=== PATIENT | female | born 1955 | race Asian ===

== ENCOUNTER 2016-12-12 12:54 | Observation (INO) | payer SELFPAY ==
[~2016-12-12] VITALS: Ht 157.5 cm; Wt 82.0 kg
[~2016-12-12 12:54] MED LIST: ALEV220C; IBUP800 PO
[2016-12-12 13:02] VITALS: BP 151/80; PULSE 91; RESP 16; TEMP 98.2; O2SAT 98
[2016-12-12] MEDS ORDERED: SODIUM CHLOR 0.9% 1000 ML INJ 1,000 ML IV ONE (15:28)
[2016-12-12] MEDS ORDERED: KETOROLAC TROMETHAMINE 30 MG/ML (IVP) VIAL IVP ONE (15:30)
[2016-12-12] MEDS ORDERED: ONDANSETRON HCL 4 MG/2 ML VIAL IVP ONE (15:30)
--- NOTE | 2016-12-12 15:35 | PD ---
HPI Chief Complaint: Flank/Kidney Pain Time Seen by Provider: 15:32 Travel History International Travel<30 days: No Contact w/Intl Traveler<30days: No Traveled to known affect area: No History of Present Illness HPI 61-year-old female that presents to the ED for evaluation of left abdominal and flank pain. Per patient she's had this since yesterday. Per patient the pain is severe. Per patient comes and goes. Per patient she also has sensation that she has to urinate but she has not been able to urinate much. She does have a history of kidney stones in the past. She denies any trauma. Per patient she gets nauseous and vomits when she gets the severe pain. Per patient the pain is sharp and debilitating. Per patient the pain when he comes is 10 out of 10. Per patient she's been taking OTC meds with some relief but he continues to come back. She states that she is not eating much today because of the nausea and vomited. She is afraid of eating anything. She has no allergies to medication. She has not seen anybody for this. Pain does not radiate and stays mainly on the left flank and left abdomen. Does not improve with touch or with movement. Comes on and off with no obvious trigger. No bowel movement issues. Patient states that she has had her appendix and gallbladder removed. 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) Social History Alcohol Use: No Tobacco Use: No Substance Use: No Allergies-Medications (Allergen,Severity, Reaction): Coded Allergies: No Known Allergies (Verified , 12/12/16) Reported Meds & Prescriptions Reported Meds & Active Scripts Active Reported Tylenol (Acetaminophen) 325 Mg Tab 650 Mg PO Q4H PRN Review of Systems General / Constitutional: No: Fever, Chills, Weight Gain, Weight Loss, Other Eyes: No: Diploplia, Blurred Vision, Photophobia, Drainage, Redness, Foreign Body Sensation, Pain, Tearing, Blind Spots, Visual changes, Blindness, Other HENT: No: Headaches, Vertigo, Lightheadedness, Sore Throat, Rhinitis, Rhinorrhea, Congestion, Nosebleed, Neck Stiffness, Neck Pain, Masses, Gingival Bleeding, Dental Difficulties, Ear Discharge, Earache, Other Cardiovascular: No: Chest Pain or Discomfort, Palpitations, Irregular Rhythm, Tachycardia, Diaphoresis, Syncope, Dyspnea on exertion, Varicosities, Edema, Cyanosis, Varicosities, Phlebitis, Claudication, Other Respiratory: No: Cough, Shortness of Breath, Wheezing, Sneezing, Orthopnea, Hemoptysis, Stridor, Night Sweats, Pleuritic Pain, Other Gastrointestinal: Positive: Nausea, Vomiting, Abdominal Pain, No: Diarrhea, Hematemesis, Hematochezia, Constipation, Changes in Bowel Habits, Indigestion, Dysphagia, Loss of Appetite, Other Genitourinary: Positive: Flank Pain, No: Urgency, Frequency, Dysuria, Nocturia , Hematuria, Decreased Urinary Output, Oliguria, Hesitancy, Dribbling, Incontinence, Pelvic Pain, Dyspareunia, Discharge, Dysmenorrhea, Menorrhagia, Metorrhagia, Vaginal Bleeding, Other Musculoskeletal: No: Myalgias, Arthralgias, Limited ROM, Weakness, Cramping, Edema, Pain, Atrophy, Other Skin: No Rash, No Itching, No Dryness, No Lumps, No Hives, No Change in Pigmentation, No Change in nails, No Alopecia, No Lesions, No Breast Lumps, No Breast Tenderness, No Breast Swelling, No Other Neurologic: No: Weakness, Dizziness, Syncope, Focal Abnormalities, Coordination Problem, Tremor, Ataxia, Headache, Change in Mentation, Slurred Speech, Paresthesia, Incontinence, Seizures, Sensory Disturbance, Other Psychiatric: No: Anxiety, Depression, Suicidal Ideations, Disorder of Thought, Mood Disorder, Substance Abuse, Homicidal Ideation, Other Endocrine: No: Heat Intolerance, Cold Intolerance, Polyuria, Polydipsia, Other Hematologic/Lymphatic: No: Easy Bruising, Lymph Node Enlargement, Other Physical Exam Narrative GENERAL: SKIN: Warm and dry. HEAD: Atraumatic. Normocephalic. EYES: Pupils equal and round. No scleral icterus. No injection or drainage. ENT: No nasal bleeding or discharge. Mucous membranes pink and moist. Tongue is midline. No uvula deviation. NECK: Trachea midline. No JVD. CARDIOVASCULAR: Regular rate and rhythm. No murmurs, S3, S4. RESPIRATORY: No accessory muscle use. Clear to auscultation. Breath sounds equal bilaterally. GASTROINTESTINAL: Abdomen soft, non-tender, nondistended. Hepatic and splenic margins not palpable. No CVA tenderness. No obvious tenderness to palpation with touch. MUSCULOSKELETAL: Extremities without clubbing, cyanosis, or edema. No obvious deformities. Full range of motion of the upper and lower extremities bilaterally. NEUROLOGICAL: Awake and alert. No obvious cranial nerve deficits. Motor grossly within normal limits. Five out of 5 muscle strength in the arms and legs. Normal speech. PSYCHIATRIC: Appropriate mood and affect; insight and judgment normal. Data Data Last Documented VS Vital Signs Date Time Temp Pulse Resp B/P Pulse Ox O2 Delivery O2 Flow Rate FiO2 12/12/16 13:02 98.2 91 16 151/80 98 Orders Urinalysis - C+S If Indicated (12/12/16 13:06) Complete Blood Count With Diff (12/12/16 15:28) Comprehensive Metabolic Panel (12/12/16 15:28) Ct Abd/Pel W/O Iv Contrast (12/12/16 15:28) Iv Access Insert/Monitor (12/12/16 15:28) Ketorolac Inj (Toradol Inj) (12/12/16 15:30) Ondansetron Inj (Zofran Inj) (12/12/16 15:30) Sodium Chlor 0.9% 1000 Ml Inj (Ns 1000 M (12/12/16 15:28) Lipase (12/12/16 15:28) Npo After Midnight W/ Po Meds (12/12/16 Dinner) ^ Consent (12/12/16 16:40) Morphine Inj (Morphine Inj) (12/12/16 17:00) Ondansetron Inj (Zofran Inj) (12/12/16 17:00) Admit Order (Ed Use Only) (12/12/16 17:19) Labs Laboratory Tests Test 12/12/16 15:57 White Blood Count 8.2 TH/MM3 Red Blood Count 4.90 MIL/MM3 Hemoglobin 14.5 GM/DL Hematocrit 43.3 % Mean Corpuscular Volume 88.3 FL Mean Corpuscular Hemoglobin 29.7 PG Mean Corpuscular Hemoglobin 33.6 % Concent Red Cell Distribution Width 13.3 % Platelet Count 161 TH/MM3 Mean Platelet Volume 8.4 FL Neutrophils (%) (Auto) 69.8 % Lymphocytes (%) (Auto) 21.0 % Monocytes (%) (Auto) 6.7 % Eosinophils (%) (Auto) 1.8 % Basophils (%) (Auto) 0.7 % Neutrophils # (Auto) 5.7 TH/MM3 Lymphocytes # (Auto) 1.7 TH/MM3 Monocytes # (Auto) 0.6 TH/MM3 Eosinophils # (Auto) 0.2 TH/MM3 Basophils # (Auto) 0.1 TH/MM3 CBC Comment DIFF FINAL Differential Comment Sodium Level 142 MEQ/L Potassium Level 4.3 MEQ/L Chloride Level 108 MEQ/L Carbon Dioxide Level 26.5 MEQ/L Anion Gap 8 MEQ/L Blood Urea Nitrogen 17 MG/DL Creatinine 0.76 MG/DL Estimat Glomerular Filtration 78 ML/MIN Rate Random Glucose 74 MG/DL Calcium Level 8.8 MG/DL Total Bilirubin 0.6 MG/DL Aspartate Amino Transf 43 U/L (AST/SGOT) Alanine Aminotransferase 23 U/L (ALT/SGPT) Alkaline Phosphatase 76 U/L Total Protein 7.7 GM/DL Albumin 3.8 GM/DL Lipase 97 U/L [facility] Medical Decision Making Medical Screen Exam Complete: Yes Emergency Medical Condition: Yes Medical Record Reviewed: Yes Interpretation(s) CBC & BMP Diagram 12/12/16 15:57 LFTs and lipase within normal limits. Last Impressions Abdomen/Pelvis CT 12/12/16 1528 Signed Impressions: Service Date/Time: Monday, December 12, 2016 16:05 - CONCLUSION: 1. 1.1 cm stone in the left UPJ causing hydronephrosis of the left kidney. 2. There are 2 tiny 2 mm stones lower pole left kidney not causing obstruction. 3. Right kidney is unremarkable. 4. Fatty infiltration of the liver. Jason Monahan MD Differential Diagnosis Kidney stone versus ureterolithiasis versus pyelonephritis versus acute abdomen versus pancreatitis Narrative Course 61-year-old female that presents to the ED for evaluation of left flank and abdominal pain. Patient was properly examined and was found to have signs and symptoms consistent with appears to be possible kidney stone. Labs and imaging ordered. Pain medication given. IV started. Labs and imaging showed 1.1 cm stone otherwise unremarkable. No signs of infection. Case was discussed in my attending who agrees with plan. Case was discussed with urology Dr. Goldberg was agrees to admission to medicine and consult to him. Stent likely placed tomorrow. Case was discussed with Dr. Rosario who agrees to admission. Procedures EKG Prior to Arrival: No Diagnosis Primary Impression: Kidney stone on left side Additional Impression: Hydronephrosis Qualified Code: N13.2 - Hydronephrosis with urinary obstruction due to renal calculus Admitting Information Admitting Physician Requests: Observation Arian Arriola Dec 12, 2016 15:35
[2016-12-12] MEDS ORDERED: TYLE325T PO (15:48)
[2016-12-12 16:09] LABS: AUTOMATED NEUTROPHIL # 5.7 TH/MM3 (1.8-7.7); BASOPHIL # 0.1 TH/MM3 (0-0.2); BASOPHIL % 0.7 % (0.0-2.0); EOSINOPHIL # 0.2 TH/MM3 (0-0.4); EOSINOPHIL % 1.8 % (0.0-4.0); HEMATOCRIT 43.3 % (35.0-46.0); HEMO FLAGS DIFF FINAL; LYMPHOCYTE # 1.7 TH/MM3 (1.0-4.8); MEAN CELL VOLUME 88.3 FL (80.0-100.0); MEAN CORPUSCULAR HEMOGLOBIN 29.7 PG (27.0-34.0); MEAN CORPUSCULAR HGB CONC 33.6 % (32.0-36.0); MONO % 6.7 % (0.0-8.0); NEUT % 69.8 % (16.0-70.0); PLATELET COUNT 161 TH/MM3 (150-450); RED CELL DISTRIBUTION WIDTH 13.3 % (11.6-17.2); WHITE BLOOD COUNT 8.2 TH/MM3 (4.0-11.0)
--- NOTE | 2016-12-12 16:23 | RADRPT ---
EXAM DATE/TIME: 12/12/2016 16:05 [facility] COMPARISON: No previous studies available for comparison. INDICATIONS : Left flank pain with nausea. ORAL CONTRAST: No oral contrast ingested. RADIATION DOSE: 15.09 CTDIvol (mGy) MEDICAL HISTORY : Renal calculi. Rheumatoid arthritis. SURGICAL HISTORY : Appendectomy. Cholecystectomy.Tubal ligation. ENCOUNTER: Initial ACUITY: 1 day PAIN SCALE: 7/10 LOCATION: Left flank TECHNIQUE: Volumetric scanning of the abdomen and pelvis was performed. Using automated exposure control and ad justment of the mA and/or kV according to patient size, radiation dose was kept as low as reasonably achievable to obtain optimal diagnostic quality images. The lack of IV contrast limits the diagnosis for certain organ pathology. FINDINGS: LOWER LUNGS: The visualized lower lungs are clear. LIVER: Homogeneous density without lesion. There is fatty infiltration of the liver. There is no dilation of the biliary tree. No gallbladder, surgically removed. SPLEEN: Normal size without lesion. PANCREAS: Within normal limits. KIDNEYS: Normal in size and shape. The right kidney is within normal limits. There is hydronephrosis of the le ft kidney. There is a 1.1 cm stone at the left UPJ causing obstruction. There are 2 tiny 2 mm stones lower pole left kidney. The ureters are otherwise nondilated. ADRENAL GLANDS: Within normal limits. VASCULAR: There is no aortic aneurysm. BOWEL/MESENTERY: The stomach, small bowel, and colon demonstrate no acute abnormality. There is no free intraperitone al air or fluid. No inflammatory changes. Stool in the colon. ABDOMINAL WALL: Within normal limits. RETROPERITONEUM: There is no lymphadenopathy. BLADDER: No wall thickening or mass. No stones REPRODUCTIVE: Within normal limits. INGUINAL: There is no lymphadenopathy or hernia. MUSCULOSKELETAL: Within normal limits for patient age. CONCLUSION: 1. 1.1 cm stone in the left UPJ causing hydronephrosis of the left kidney. 2. There are 2 tiny 2 mm stones lower pole left kidney not causing obstruction. 3. Right kidney is unremarkable. 4. Fatty infiltration of the liver. Jason Monahan MD on December 12, 2016 at 16:19 Board Certified Radiologist. This report was verified electronically.
[2016-12-12 16:37] LABS: ALKALINE PHOSPHATASE 76 U/L (45-117); TOTAL BILIRUBIN ADULT 0.6 MG/DL (0.2-1.0)
[2016-12-12 16:51] LABS: ALT (GPT) 23 U/L (10-53); ANION GAP 8 MEQ/L (5-15); AST (GOT) 43 U/L (15-37); BICARBONATE 26.5 MEQ/L (21.0-32.0); BLOOD UREA NITROGEN 17 MG/DL (7-18); CHLORIDE 108 MEQ/L (98-107); GLOMERULAR FILTRATION RATE 78 ML/MIN (>89); SODIUM (NA) 142 MEQ/L (136-145)
[2016-12-12 16:53] LABS: POTASSIUM 4.3 MEQ/L (3.5-5.1)
[2016-12-12] MEDS ORDERED: ONDANSETRON HCL 4 MG/2 ML VIAL IV PUSH ONE (17:00)
[2016-12-12] MEDS ORDERED: MORPHINE SULFATE 4 MG/ML INJ IV PUSH ONE (17:00)
[2016-12-12] MEDS ORDERED: ONDANSETRON HCL 4 MG/2 ML VIAL IVP PRN (18:00)
[2016-12-12] MEDS ORDERED: BISACODYL 10 MG SUPP PR PRN (18:00)
[2016-12-12] MEDS ORDERED: NALOXONE HCL 0.4 MG/ML AMP IV PRN (18:00)
[2016-12-12] MEDS ORDERED: ACETAMINOPHEN 325 MG TAB PO PRN (18:00)
[2016-12-12] MEDS ORDERED: MAGNESIUM HYDROXIDE SUSP 30 ML CUP PO PRN (18:00)
[2016-12-12] MEDS ORDERED: cefTRIAXone INJ 1,000 MG in SODIUM CHLORIDE 0.9% INJ 100 ML IV ONE (18:00)
[2016-12-12] MEDS ORDERED: SODIUM CHLORIDE 0.9% FLUSH 5 ML FLUSH FLUSH PRN (18:00)
[2016-12-12] MEDS ORDERED: MORPHINE SULFATE 4 MG/ML INJ IV PUSH PRN (18:00)
[2016-12-12] MEDS ORDERED: SODIUM CHLOR 0.9% 1000 ML INJ 1,000 ML IV SCH (18:00)
--- NOTE | 2016-12-12 18:16 | HHI.HP ---
[facility] Service [facility] Primary Care Physician Audrey Oneill M.D. Admission Diagnosis left 1.1 cm urethrolithiasis Diagnoses: Chief Complaint: Left abdominal and flank pain Travel History International Travel<30 Days: No Contact w/Intl Traveler <30 Da: No Traveled to Known Affected Are: No History of Present Illness This is a 61-year-old female patient with past medical history which includes rheumatoid arthritis. Patient reports that since beginning of the month she has had intermittent left-sided pain. Patient reports it was not that bad and initially before she started with maybe go away on its own. Patient woke up at 4 AM yesterday with severe left-sided abdominal and flank pain. Patient reports it was 10 out of 10 and felt like she was in labor. Associated with vomiting, chills and bloating. Patient tried a heating pad at home reports it was slightly better but still severe. Patient also reports that she feels as though she has to urinate but only is producing small amounts of urine each time. Patient proceeded to the emergency department for further evaluation and treatment. CT abdomen pelvis reveals 1.1 cm stone in the left UPJ causing hydronephrosis of the left kidney. Patient reports the pain was better after receiving pain medication given by the emergency room. Patient received morphine IV. Patient denies fevers chills shortness of breath or chest pain. Review of Systems Except as stated in HPI: all other systems reviewed are Neg Past Family Social History Past Medical History RA Past Surgical History Appendectomy, cholecystectomy, lower extremity venous stripping, lymph node biopsy, left arm surgical repair Reported Medications Tylenol (Acetaminophen) 325 Mg Tab 650 Mg PO Q4H PRN Allergies: Coded Allergies: No Known Allergies (Verified , 12/12/16) Active Ordered Medications Current Medications Medications (Trade) Dose Ordered Sig/Ashli Route Start Time Stop Time Status Last Admin (NS 1000 ml Inj) 1,000 ml @ 75 mls/hr [id number] IV 12/12/16 18:00 (NS Flush) 2 ml UNSCH PRN FLUSH 12/12/16 18:00 (NS Flush) 2 ml BID FLUSH 12/12/16 21:00 (Tylenol) 650 mg Q4H PRN PO 12/12/16 18:00 (Zofran Inj) 4 mg Q6H PRN IVP 12/12/16 18:00 (Dulcolax Supp) 10 mg DAILY PRN [place] 12/12/16 18:00 (Milk Of Juju Liq) 30 ml Q12H PRN PO 12/12/16 18:00 Naloxone HCl 0.4 mg 0.4 mg UNSCH PRN IV 12/12/16 18:00 (Rocephin Inj/NS Inj) 100 ml @ 200 mls/hr ONCE ONCE IV 12/12/16 18:00 12/12/16 18:29 (Morphine Inj) 2 mg Q4H PRN IV PUSH 12/12/16 18:00 ([place] 5-325 Mg) 1 tab Q6H PRN PO 12/12/16 18:00 Family History Mother had rheumatoid arthritis and diabetes Father had hypertension Social History Patient reports she quit tobacco use but approximally 11 years ago prior to that she smoked 4-5 cigarettes a day Denies EtOH use or illicit drug use Physical Exam Vital Signs Vital Signs Date Time Temp Pulse Resp B/P Pulse Ox O2 Delivery O2 Flow Rate FiO2 12/12/16 13:02 98.2 91 16 151/80 98 Physical Exam GENERAL: This is a well-nourished, well-developed patient, in no apparent distress. SKIN: No rashes, ecchymoses or lesions. Cool and dry. HEAD: Atraumatic. Normocephalic. No temporal or scalp tenderness. EYES: Extraocular motions intact. No scleral icterus. No injection or drainage. CARDIOVASCULAR: Regular rate and rhythm without murmurs, gallops, or rubs. RESPIRATORY: Clear to auscultation. Breath sounds equal bilaterally. No wheezes , rales, or rhonchi. GASTROINTESTINAL: Abdomen soft, nondistended. Tender to palpate patient left lateral abdomen GENITOURINARY: CVA tenderness on the left MUSCULOSKELETAL: Extremities without clubbing, cyanosis, or edema. No joint tenderness, effusion, or edema noted. No calf tenderness. Negative Homans sign bilaterally. NEUROLOGICAL: Awake and alert. No focal deficits appreciated. Motor and sensory grossly within normal limits. Five out of 5 muscle strength in all muscle groups. Normal speech. Laboratory Laboratory Tests Test 12/12/16 15:57 White Blood Count 8.2 Red Blood Count 4.90 Hemoglobin 14.5 Hematocrit 43.3 Mean Corpuscular Volume 88.3 Mean Corpuscular Hemoglobin 29.7 Mean Corpuscular Hemoglobin 33.6 Concent Red Cell Distribution Width 13.3 Platelet Count 161 Mean Platelet Volume 8.4 Neutrophils (%) (Auto) 69.8 Lymphocytes (%) (Auto) 21.0 Monocytes (%) (Auto) 6.7 Eosinophils (%) (Auto) 1.8 Basophils (%) (Auto) 0.7 Neutrophils # (Auto) 5.7 Lymphocytes # (Auto) 1.7 Monocytes # (Auto) 0.6 Eosinophils # (Auto) 0.2 Basophils # (Auto) 0.1 CBC Comment DIFF FINAL Differential Comment Sodium Level 142 Potassium Level 4.3 Chloride Level 108 Carbon Dioxide Level 26.5 Anion Gap 8 Blood Urea Nitrogen 17 Creatinine 0.76 Estimat Glomerular Filtration 78 Rate Random Glucose 74 Calcium Level 8.8 Total Bilirubin 0.6 Aspartate Amino Transf 43 (AST/SGOT) Alanine Aminotransferase 23 (ALT/SGPT) Alkaline Phosphatase 76 Total Protein 7.7 Albumin 3.8 Lipase 97 Result Diagram: 12/12/16 1557 12/12/16 1557 Imaging Last Impressions Abdomen/Pelvis CT 12/12/16 1528 Signed Impressions: Service Date/Time: Monday, December 12, 2016 16:05 - CONCLUSION: 1. 1.1 cm stone in the left UPJ causing hydronephrosis of the left kidney. 2. There are 2 tiny 2 mm stones lower pole left kidney not causing obstruction. 3. Right kidney is unremarkable. 4. Fatty infiltration of the liver. Jason Monahan MD Assessment and Plan Problem List: (1) Hydronephrosis ICD Code: N13.30 Status: Acute (2) Kidney stone on left side ICD Code: N20.0 Status: Acute Assessment and Plan This is a 61-year-old female patient with past medical history which includes rheumatoid arthritis. Patient reports that since beginning of the month she has had intermittent left-sided pain. Patient reports it was not that bad and initially before she started with maybe go away on its own. Patient woke up at 4 AM yesterday with severe left-sided abdominal and flank pain. Patient reports it was 10 out of 10 and felt like she was in labor. Associated with vomiting, chills and bloating. CT abdomen pelvis reveals 1.1 cm stone in the left UPJ causing hydronephrosis of the left kidney. Left UPJ stone with hydronephrosis Rocephin IV times one Normal saline 75 cc/h Urology planning for cystoscopy and stent placement Nothing by mouth after midnight Morphine IV and [place] by mouth for pain UA pending Nausea/vomiting Supportive care Zofran as needed Rheumatoid arthritis patient has tried methotrexate in the past and did not tolerate due to dental infections will continue.Pain medication as needed DVT prophylaxis with SCDs patient has pending procedure in a.m. Discussed plan of care with the ER provider, RN inpatient Written by Katelynn Jennings, acting as scribe for Dr. Rosario on 12/12/16 at 18:15. The documentation accurately reflects the work performed [id number] by me on 12/12/16 at 1815. Problem Qualifiers (1) Hydronephrosis: Qualified Code: N13.2 - Hydronephrosis with urinary obstruction due to renal calculus Katelynn Jennings Dec 12, 2016 18:16 Tammy Rosario MD Dec 12, 2016 20:17
[2016-12-12 18:53] VITALS: BP 124/75; PULSE 67; RESP 18; TEMP 95.8; O2SAT 96
[2016-12-12] MEDS: ACETAMINOPHEN/HYDROcodone 325 MG/5 MG TAB PO PRN (20:14)
[2016-12-12] MEDS ORDERED: SODIUM CHLORIDE 0.9% FLUSH 5 ML FLUSH FLUSH SCH (21:00)
[2016-12-13 00:35] VITALS: BP 123/71; PULSE 65; RESP 19; TEMP 98; O2SAT 98
[2016-12-13 03:21] VITALS: BP 120/73; PULSE 71; RESP 18; TEMP 98.7; O2SAT 97
[2016-12-13 07:10] LABS: BICARBONATE 24.7 MEQ/L (21.0-32.0); POTASSIUM 3.6 MEQ/L (3.5-5.1)
--- NOTE | 2016-12-13 08:04 | PD.CONS ---
[facility] Service Urology Consult Requested By Primary Care Physician Audrey Oneill M.D. Diagnosis: (1) Hydronephrosis ICD Code: N13.30 (2) Kidney stone on left side ICD Code: N20.0 History of Present Illness 61 y.o. female presents with history of left-sided flank pain which is been on and off for the last month. Pain intensified yesterday and she came to the emergency room. CT scan in the emergency room demonstrates 1.1 cm left UPJ stone with mild to moderate hydronephrosis. She denies any fevers or chills. Her medical history is significant for rheumatoid arthritis. Review of Systems Endocrine: DENIES: Abnorml menstrual pattern Eyes: DENIES: Blurred vision Ears, nose, mouth, throat: DENIES: Tinnitus Respiratory: DENIES: Apneas Cardiovascular: DENIES: Chest pain Gastrointestinal: DENIES: Black stools Genitourinary: DENIES: Abnormal vaginal bleeding, Urgency, Hematuria Musculoskeletal: COMPLAINS OF: Joint pain Integumentary: DENIES: Abnormal pigmentation Hematologic/lymphatic: DENIES: Bruising Immunologic/allergic: DENIES: Eczema Neurologic: DENIES: Abnormal gait Psychiatric: DENIES: Anxiety Past Family Social History Past Medical History Rheumatoid arthritis Past Surgical History Cholecystectomy Appendectomy Left wrist surgery Varicose vein stripping Allergies: Coded Allergies: No Known Allergies (Verified , 12/12/16) Social History Denies any smoking drinking or using drugs Physical Exam Vital Signs Vital Signs Date Time Temp Pulse Resp B/P Pulse Ox O2 Delivery O2 Flow Rate FiO2 12/13/16 03:21 98.7 71 18 120/73 97 12/13/16 00:35 98.0 65 19 123/71 98 12/12/16 18:53 95.8 67 18 124/75 96 12/12/16 13:02 98.2 91 16 151/80 98 Physical Exam GENERAL: This is a well-nourished, well-developed patient, in no apparent distress. SKIN: No rashes, ecchymoses or lesions. Cool and dry. HEAD: Atraumatic. Normocephalic. No temporal or scalp tenderness. EYES: Pupils equal round and reactive. Extraocular motions intact. No scleral icterus. No injection or drainage. ENT: Nose without bleeding, purulent drainage or septal hematoma. Throat without erythema, tonsillar hypertrophy or exudate. Uvula midline. Airway patent. NECK: Trachea midline. No JVD or lymphadenopathy. Supple, nontender, no meningeal signs. CARDIOVASCULAR: Regular rate and rhythm without murmurs, gallops, or rubs. RESPIRATORY: Clear to auscultation. Breath sounds equal bilaterally. No wheezes , rales, or rhonchi. GASTROINTESTINAL: Abdomen soft, non-tender, nondistended. No hepato-splenomegaly , or palpable masses. No guarding. Left-sided flank pain is noted GENITOURINARY: Normal female external genitalia MUSCULOSKELETAL: Extremities without clubbing, cyanosis, or edema. No joint tenderness, effusion, or edema noted. No calf tenderness. Negative Homans sign bilaterally. NEUROLOGICAL: Awake and alert. Cranial nerves II through XII intact. Motor and sensory grossly within normal limits. Five out of 5 muscle strength in all muscle groups. Normal speech. Laboratory Laboratory Tests Test 12/12/16 12/13/16 15:57 06:01 White Blood Count 8.2 Red Blood Count 4.90 Hemoglobin 14.5 Hematocrit 43.3 Mean Corpuscular Volume 88.3 Mean Corpuscular Hemoglobin 29.7 Mean Corpuscular Hemoglobin 33.6 Concent Red Cell Distribution Width 13.3 Platelet Count 161 Mean Platelet Volume 8.4 Neutrophils (%) (Auto) 69.8 Lymphocytes (%) (Auto) 21.0 Monocytes (%) (Auto) 6.7 Eosinophils (%) (Auto) 1.8 Basophils (%) (Auto) 0.7 Neutrophils # (Auto) 5.7 Lymphocytes # (Auto) 1.7 Monocytes # (Auto) 0.6 Eosinophils # (Auto) 0.2 Basophils # (Auto) 0.1 CBC Comment DIFF FINAL Differential Comment Sodium Level 142 143 Potassium Level 4.3 3.6 Chloride Level 108 110 Carbon Dioxide Level 26.5 24.7 Anion Gap 8 8 Blood Urea Nitrogen 17 16 Creatinine 0.76 0.64 Estimat Glomerular Filtration 78 95 Rate Random Glucose 74 97 Calcium Level 8.8 8.4 Total Bilirubin 0.6 Aspartate Amino Transf 43 (AST/SGOT) Alanine Aminotransferase 23 (ALT/SGPT) Alkaline Phosphatase 76 Total Protein 7.7 Albumin 3.8 Lipase 97 Result Diagram: 12/12/16 1557 12/13/16 0601 Assessment and Plan Assessment and Plan 61-year-old female with 1.1 cm left UPJ stone with [id number] hydronephrosis. We'll plan for cystoscopy with left double-J stent insertion. Patient require left ESWL in the future. Risk and benefits discussed and she is willing to proceed. Problem Qualifiers (1) Hydronephrosis: Qualified Code: N13.2 - Hydronephrosis with urinary obstruction due to renal calculus Chito Goldberg DO Dec 13, 2016 08:04
[2016-12-13] MEDS ORDERED: ceFAZolin INJ 1,000 MG VIAL IV ONE (08:22)
[2016-12-13] MEDS ORDERED: IOHEXOL 350 MG/ML 50 ML BTL (for RAD DIAG) ONE (08:45)
[2016-12-13] MEDS ORDERED: BELLADONNA ALKALOIDS/OPIUM 60 MG SUPP RECTAL PRN (09:00)
--- NOTE | 2016-12-13 09:06 | PD.OP ---
Operative Report Date of Surgery: Dec 13, 2016 Preoperative Diagnosis: Left UPJ stone with hydronephrosis Postoperative Diagnosis: Same Procedure: Cystoscopy, left retrograde study, left double-J stent insertion Anesthesia: BRANDO Surgeon: Chito Goldberg Cone Worker(s): None Resident Surgeon: None Operation and Findings: 61-year-old female who presented to the ER with findings a 1.1 left UPJ stone with hydronephrosis. Decision was made to bring the patient to the operating room to undergo cystoscopy with left double-J stent insertion. Risk and benefits were discussed preoperatively and the patient was willing to proceed. Patient was brought to the operative identified by myself as Perlita Cantor. She was placed in the dorsal lithotomy position, prepped and draped in usual sterile fashion, received preprocedure antibiotics, and general endotracheal tube anesthesia was administered. 22 Croatian cystoscope was inserted into the bladder and roca cystoscopy did not reveal any abnormalities. A 5 Croatian open-ended catheter was inserted into the left ureteral orifice and a retrograde study was performed. The stone was seen at the UPJ and was blown back into the kidney. An .035 sensor wire was then passed through the open- ended catheter leaving it with a good curl in the kidney. The opening catheter was then removed. A 6 Croatian 22 cm left double-J stent was placed with a good curl in the kidney and a good curl in the bladder. The bladder was evacuated and she was awoken and transferred In stable condition. Chito Goldberg DO Dec 13, 2016 09:06
[2016-12-13] MEDS ORDERED: DO NOT ADM ANY ANTICOAGULANT DRUGS XX PRN (09:08)
[2016-12-13] MEDS ORDERED: MIDAZOLAM HCL 2 MG/2 ML VIAL ONE (09:14)
[2016-12-13] MEDS ORDERED: *RESP: ALBUTEROL 2.5 MG/3 ML NEB (PRN) PERIprocedural Use ONLY NEB ONE (09:17)
[2016-12-13] MEDS ORDERED: *morphine SULFATE 8 MG/ML PERIprocedure ONLY ONE (09:42)
[2016-12-13] MEDS: ACETAMINOPHEN/HYDROcodone 325 MG/5 MG TAB PO PRN (09:45)
[2016-12-13 10:00] VITALS: BP 129/76; PULSE 80; RESP 12; TEMP 97.4; O2SAT 97
[2016-12-13 10:37] LABS: AUTOMATED NEUTROPHIL # 9.4 TH/MM3 (1.8-7.7); BASOPHIL # 0.1 TH/MM3 (0-0.2); BASOPHIL % 0.5 % (0.0-2.0); EOSINOPHIL # 0.1 TH/MM3 (0-0.4); EOSINOPHIL % 0.8 % (0.0-4.0); HEMATOCRIT 44.4 % (35.0-46.0); HEMO FLAGS DIFF FINAL; LYMPH % 9.5 % (9.0-44.0); MEAN CELL VOLUME 89.5 FL (80.0-100.0); MEAN CORPUSCULAR HGB CONC 33.6 % (32.0-36.0); MONO % 3.1 % (0.0-8.0); NEUT % 86.1 % (16.0-70.0); PLATELET COUNT 158 TH/MM3 (150-450); RED BLOOD COUNT 4.96 MIL/MM3 (4.00-5.30); RED CELL DISTRIBUTION WIDTH 13.5 % (11.6-17.2); WHITE BLOOD COUNT 10.9 TH/MM3 (4.0-11.0)
[2016-12-13] MEDS ORDERED: ONDANSETRON HCL 4 MG/2 ML VIAL IV PUSH ONE (12:00)
--- NOTE | 2016-12-13 12:10 | HHI.PR ---
Subjective Remarks Patient s/p cystoscopy and stent placement. She reports feeling much better. Pain is controlled. No nausea or vomiting. Cleared by Urology for DC to follow up outpatient. Objective Vitals Vital Signs Date Time Temp Pulse Resp B/P Pulse Ox O2 Delivery O2 Flow Rate FiO2 12/13/16 10:00 97.4 80 12 129/76 97 Nasal Cannula 2 12/13/16 09:45 82 10 144/86 96 Nasal Cannula 2 12/13/16 09:30 80 12 133/76 96 Nasal Cannula 3 12/13/16 09:20 88 Room Air 12/13/16 09:15 81 11 146/81 92 Room Air 12/13/16 09:09 98.2 112 10 150/84 95 Nasal Cannula 3 12/13/16 03:21 98.7 71 18 120/73 97 12/13/16 00:35 98.0 65 19 123/71 98 12/12/16 18:53 95.8 67 18 124/75 96 12/12/16 13:02 98.2 91 16 151/80 98 I/O 12/12/16 12/12/16 12/12/16 12/13/16 12/13/16 12/13/16 07:00 15:00 23:00 07:00 15:00 23:00 Intake Total 1053 ml 500 ml Output Total 5 ml Balance 1053 ml 495 ml Intake Oral 360 ml IV Total 693 ml Other 500 ml Output Estimated Blood Loss 5 ml # Voids 3 Result Diagram: 12/13/16 1020 12/13/16 0601 Imaging Last Impressions Abdomen/Pelvis CT 12/12/16 1528 Signed Impressions: Service Date/Time: Monday, December 12, 2016 16:05 - CONCLUSION: 1. 1.1 cm stone in the left UPJ causing hydronephrosis of the left kidney. 2. There are 2 tiny 2 mm stones lower pole left kidney not causing obstruction. 3. Right kidney is unremarkable. 4. Fatty infiltration of the liver. Jason Monahan MD Objective Remarks GENERAL: This is a well-nourished, well-developed patient, in no apparent distress. CARDIOVASCULAR: Regular rate and rhythm without murmurs, gallops, or rubs. RESPIRATORY: Clear to auscultation. Breath sounds equal bilaterally. No wheezes , rales, or rhonchi. GASTROINTESTINAL: Abdomen soft, non-tender, nondistended. Normal active bowel sounds MUSCULOSKELETAL: Extremities without clubbing, cyanosis, or edema. NEURO: Alert & Oriented x4 to person, place, time, situation. Moves all ext x4 Procedures Cystoscopy with stent placement. A/P Problem List: (1) Hydronephrosis ICD Code: N13.30 Status: Acute (2) Kidney stone on left side ICD Code: N20.0 Status: Acute Assessment and Plan 61 Y/O female admitted with left UPJ stone and hydronephrosis. Patient was admitted and underwent cystoscopy with stent placement. Her symptoms significantly improved. She is discharged home to follow up outpatient with Urology. Per Urology, she is discharged on Lortab, Pyridium and Levaquin. Discharge Planning DC home in good condition FU with Urology Diet: Regular Activity: Regular Meds: Per med rec. Problem Qualifiers (1) Hydronephrosis: Qualified Code: N13.2 - Hydronephrosis with urinary obstruction due to renal calculus Tammy Rosario MD Dec 13, 2016 12:09
[2016-12-13] MEDS ORDERED: HYDR-3516 PO (12:22)
[2016-12-13] MEDS ORDERED: LEVA750T PO (12:22)
--- NOTE | 2016-12-13 12:23 | HHI.DCPOC ---
Discharge Care Plan Diagnosis: (1) Kidney stone on left side Goals to Promote Your Health * To prevent worsening of your condition and complications * To maintain your health at the optimal level Directions to Meet Your Goals Take your medications as prescribed Follow your dietary instruction Follow activity as directed Keep your appointments as scheduled Take your immunizations and boosters as scheduled If your symptoms worsen call your PCP, if no PCP go to Urgent Care Center or Emergency Room Smoking is Dangerous to Your Health. Avoid second hand smoke Call the 24-hour hour crisis hotline for domestic abuse at Tammy Rosario MD Dec 13, 2016 12:23
[2016-12-13] MEDS ORDERED: PROPOFOL 200 MG/20 ML AMP IV ONE (13:30)
== END 2016-12-13 13:17 | disposition home or self-care (01) ==
LOC: NEPE 12:54 → NEDA 17:20 → NEPFCDU 18:44
PROVIDERS: ADMIT Family Medicine; ATTEND Family Medicine
DX: N13.2 Hydronephrosis with renal and ureteral calculous obstruction (principal); R11.2 Nausea with vomiting, unspecified; M06.9 Rheumatoid arthritis, unspecified; K76.0 Fatty (change of) liver, not elsewhere classified; N21.1 Calculus in urethra; R68.83 Chills (without fever); R14.0 Abdominal distension (gaseous)
CPT/HCPCS: 00910; 52332; 74176; 74420; 80048; 80053; 83690; 85025; 96374; 96375; 99285; C1769; C2617; G0378; J0690; J0696; J1885; J2250; J2270; J2405; J3010; J7030; J7613; Q9967